=== PATIENT | female | born 1960 | race Caucasian/White ===

== ENCOUNTER 2018-03-11 17:26 | Emergency (ER) | payer OTHER ==
[~2018-03-11] VITALS: Ht 157.5 cm; Wt 54.4 kg
[~2018-03-11 17:26] MED LIST: NOHOMEMEDICATIONS; TESSALON PERLE100 MG PO; VENTOLIN HFA 1818 GM INH; ZPAK PO
[2018-03-11] MEDS ORDERED: LISINOPRIL20 MG PO (17:42)
[2018-03-11] MEDS ORDERED: XANAX 0.5 MG0.5 MG PO (17:42)
[2018-03-11] MEDS ORDERED: AMBIEN 5 MG TABL5 M1 PO (17:42)
[2018-03-11] MEDS ORDERED: ACETAMINOPHEN-1 EAC1 PO (19:46)
[2018-03-11] MEDS ORDERED: ERYTHROMYCIN E3.5 G3 OPHTHALMIC (19:52)
[2018-03-11 19:57] VITALS: BP 158/74
== END 2018-03-11 19:58 | disposition home or self-care (01) ==
LOC: M.ERS 17:26
DX: S05.12XA Contusion of eyeball and orbital tissues, left eye, initial encounter (principal); F17.200 Nicotine dependence, unspecified, uncomplicated; W20.8XXA Other cause of strike by thrown, projected or falling object, initial encounter; Y93.89 Activity, other specified; Y92.89 Other specified places as the place of occurrence of the external cause; Y99.8 Other external cause status